=== PATIENT | female | born 1970 | race African-American/Black ===

== ENCOUNTER 2017-05-24 10:23 | Emergency (ER) | payer MEDICAID ==
[~2017-05-24] VITALS: Ht 167.6 cm; Wt 82.0 kg
[2017-05-24] MEDS ORDERED: IBUPROFEN 600MG TABLET PO ONE (12:30)
[2017-05-24 12:33] VITALS: BP 136/69
== END 2017-05-24 12:47 | disposition home or self-care (01) ==
LOC: ER 11:14
DX: M25.512 Pain in left shoulder (principal); V89.2XXA Person injured in unspecified motor-vehicle accident, traffic, initial encounter; Y93.89 Activity, other specified; Y92.89 Other specified places as the place of occurrence of the external cause
CPT/HCPCS: 71010; 73030; 99284; A4565